=== PATIENT | male | born 1965 | race Caucasian/White ===

== ENCOUNTER 2018-03-24 22:45 | Emergency (ER) | payer OTHER ==
[~2018-03-24] VITALS: Ht 182.9 cm; Wt 95.5 kg
[2018-03-24 22:45] VITALS: TEMP 98.1
[~2018-03-24 22:45] MED LIST: FLEXERIL10 MG PO; LORTAB 5/500 501 TAB PO; NO HOME MEDICATIONS
[2018-03-24 23:12] LABS: BASO % 0.4 % (0.0-2.0); EOS # 0.2 (0.0-0.7); EOS % 2.3 % (0-4.0); GRAN # 3.9 (1.4-6.5); GRAN % 53.3 % (42.2-75.2); HEMOGLOBIN 12.7 g/dl (13.5-18.0); LYMPH # 2.5 (1.2-3.4); LYMPH % 34.5 % (20.0-51.0); MEAN CELL VOLUME 92 fl (80.0-100.0); MEAN CORPUSCULAR HEMOGLOBIN 32 pg (27.0-31.0); MEAN CORPUSCULAR HGB CONC 35 g/dl (33.0-37.0); MEAN PLATELET VOLUME 10.6 fl (7.4-10.4); MONO # 0.7 (0.1-0.6); MONO % 9.2 % (1.7-9.3); PLATELET COUNT 226 K/mm3 (130-400); RED BLOOD COUNT 3.95 M/mm3 (4.20-5.60); REDCELL DISTRIBUTION WIDTH-CV 12.7 % (11.5-14.5)
[2018-03-24 23:13] LABS: HEMATOCRIT 36.3 % (42.0-52.0)
[2018-03-24 23:21] LABS: ALBUMIN 4.3 gm/dL (3.5-5.0); BILIRUBIN,TOTAL 0.2 mg/dL (0.0-1.0); CALCIUM 9.6 mg/dL (8.4-10.2); CREATININE, serum 0.84 mg/dL (0.66-1.25); POTASSIUM 3.8 mmol/L (3.4-5.0); TOTAL PROTEIN 7.7 gm/dL (6.4-8.2)
[2018-03-25] MEDS ORDERED: CIPRO 500MG TA500 MG PO (01:48)
[2018-03-25] MEDS ORDERED: NORCO 325 MG-51 TAB PO (01:48)
[2018-03-25] MEDS ORDERED: FLEXERIL 1010 MG/TAB PO (01:48)
[2018-03-25 02:20] VITALS: BP 120/76; PULSE 69
== END 2018-03-25 02:20 | disposition home or self-care (01) ==
LOC: COL.ER 22:45
PROVIDERS: Emergency Medicine
DX: S01.81XA Laceration without foreign body of other part of head, initial encounter (principal); S80.02XA Contusion of left knee, initial encounter; S63.502A Unspecified sprain of left wrist, initial encounter; F10.129 Alcohol abuse with intoxication, unspecified; E78.5 Hyperlipidemia, unspecified; Z23 Encounter for immunization; Y90.7 Blood alcohol level of 200-239 mg/100 ml; W22.8XXA Striking against or struck by other objects, initial encounter; V93.83XA Other injury due to other accident on board other powered watercraft, initial encounter; Y92.828 Other wilderness area as the place of occurrence of the external cause
CPT/HCPCS: J2270; J2405; J7030; Q9967

== ENCOUNTER → 2018-04-01 | Emergency (ER) | payer OTHER ==
[~2018-04-01] MED LIST changes: +CIPRO 500MG TA500 MG PO; +FLEXERIL 1010 MG/TAB PO; +NORCO 325 MG-51 TAB PO
[2018-04-01 14:09] VITALS: BP 115/71; PULSE 76; TEMP 98.8
== END ==
LOC: COL.ER 14:06
DX: S01.111D Laceration without foreign body of right eyelid and periocular area, subsequent encounter (principal); Z79.891 Long term (current) use of opiate analgesic

== ENCOUNTER 2018-12-07 12:46 | Emergency (ER) | payer OTHER ==
[~2018-12-07] VITALS: Ht 182.9 cm; Wt 97.7 kg
[2018-12-07] MEDS ORDERED: CELEXA10 MG PO (13:06)
[2018-12-07] MEDS ORDERED: LIPITOR 10MG10 MG (13:07)
[2018-12-07 13:31] LABS: HEMATOCRIT 41.9 % (42.0-52.0); HEMOGLOBIN 14.5 g/dl (13.5-18.0); MEAN CELL VOLUME 92 fl (80.0-100.0); MEAN CORPUSCULAR HEMOGLOBIN 32 pg (27.0-31.0); MEAN CORPUSCULAR HGB CONC 35 g/dl (33.0-37.0); MEAN PLATELET VOLUME 10.7 fl (7.4-10.4); PLATELET COUNT 206 K/mm3 (130-400); RED BLOOD COUNT 4.54 M/mm3 (4.20-5.60); REDCELL DISTRIBUTION WIDTH-CV 13.2 % (11.5-14.5)
[2018-12-07 13:35] LABS: COLLECTION METHOD CLEAN CATCH
[2018-12-07 13:41] LABS: ALBUMIN 4.6 gm/dL (3.5-5.0); BILIRUBIN,TOTAL 1.1 mg/dL (0.0-1.0); C-REACTIVE PROTEIN 0.8 mg/dL (0.0-0.9); CALCIUM 10.3 mg/dL (8.4-10.2); CREATININE, serum 0.87 (0.66-1.25); POTASSIUM 4.2 mmol/L (3.4-5.0); TOTAL PROTEIN 8.4 gm/dL (6.4-8.2)
[2018-12-07 13:43] LABS: MUCOUS Present /lpf; PH 5 (5-8); SQUAMOUS EPITHELIAL None Seen /hpf; URINE APPEARANCE Clear; URINE BACTERIA None Seen /hpf; URINE BILIRUBIN Negative (NEGATIVE); URINE BLOOD Negative (NEGATIVE); URINE COLOR Yellow; URINE GLUCOSE Negative (NEGATIVE); URINE KETONE 1+ (NEGATIVE); URINE LEUKOCYTE ESTERASE Negative (NEGATIVE); URINE NITRATE Negative (NEGATIVE); URINE PROTEIN(semi-quant) Negative (NEGATIVE); URINE RBC 0-2 /hpf; URINE UROBILINOGEN Negative (NEGATIVE)
[2018-12-07 13:49] LABS: BAND 7 % (0-10); LYMPHOCYTE 2 % (20.0-51.0); NEUTROPHILS 91 % (42.0-75.2); PLATELET ESTIMATE NORMAL (NORMAL); TOXIC GRANULATION PRESENT
[2018-12-07 15:38] VITALS: BP 111/71; PULSE 80; TEMP 98.8
[2018-12-07] MEDS ORDERED: ZOFRAN ODT4 MG PO (15:49)
== END 2018-12-07 15:51 | disposition home or self-care (01) ==
LOC: COL.ER 12:46
PROVIDERS: Physician Assistant
DX: R11.10 Vomiting, unspecified (principal); R19.7 Diarrhea, unspecified; R10.31 Right lower quadrant pain; R10.11 Right upper quadrant pain; I10 Essential (primary) hypertension; F41.9 Anxiety disorder, unspecified; E78.5 Hyperlipidemia, unspecified
CPT/HCPCS: J1170; J1885; J2405; J7030; Q9967

== ENCOUNTER → 2022-03-14 | Outpatient (CLI) | payer OTHER ==
[~2022-03-14] MED LIST changes: +CELEXA10 MG PO; +LIPITOR 10MG10 MG; +ZOFRAN ODT4 MG PO
== END ==
LOC: COL.RAD 13:37
DX: R09.89 Other specified symptoms and signs involving the circulatory and respiratory systems (principal); R22.1 Localized swelling, mass and lump, neck

== ENCOUNTER 2023-12-11 12:58 | Day surgery (SDC) | payer BC ==
[~2023-12-11] VITALS: Ht 182.9 cm; Wt 94.9 kg
[~2023-12-11 12:58] MED LIST changes: +AMBIEN 10MG10 MG PO; +CELEXA 20MG20 MG/TAB PO; +COZAAR100 MG PO; +Famotidine 20 MG TAB PO SCH; +LIPITOR 10MG10 MG PO; +LR 1,000 ML IV SCH; +Meclizine 25 MG TAB PO SCH; +Metoclopramide 10 MG TAB PO SCH; +PROTONIX 40MG T40 MG PO; +Scopolamine 1 MG Delivered 3-Day PATCH TD SCH
[2023-12-11] MEDS ORDERED: Ketorolac 30 MG/ML VIAL ONE (13:41)
[2023-12-11] MEDS ORDERED: NS 10 ML IV ONE (13:41)
[2023-12-11] MEDS ORDERED: Lidocaine PF 2% (20 MG/ML) 5 ML VIAL ONE (13:41)
[2023-12-11] MEDS ORDERED: fentaNYL 50 MCG/ML 2 ML VIAL ONE (13:41)
[2023-12-11] MEDS ORDERED: Ondansetron 4 MG/2 ML VIAL ONE (13:41)
[2023-12-11] MEDS ORDERED: dexAMETHasone 10 MG/ML VIAL ONE (13:41)
[2023-12-11] MEDS ORDERED: ZYRTEC5 MG PO (13:42)
[2023-12-11] MEDS ORDERED: ZYRTEC 10MG10 MG PO (13:42)
[2023-12-11] MEDS ORDERED: Succinylcholine PF 200 MG/10 ML SYRINGE IV ONE (13:42)
[2023-12-11] MEDS ORDERED: hydrALAZINE 20 MG/ML 1 ML VIAL IV PRN (13:45)
[2023-12-11] MEDS ORDERED: fentaNYL 50 MCG/ML 1 ML SYRINGE/VIAL [PACU/SDC ONLY] IV PRN (13:45)
[2023-12-11] MEDS ORDERED: Ondansetron 4 MG/2 ML VIAL IV PRN (13:45)
[2023-12-11] MEDS ORDERED: HYDROmorphone 1 MG/1 ML SYRINGE [PACU/SDC ONLY] IV PRN (13:45)
[2023-12-11] MEDS ORDERED: droPERidol 2.5 MG/ML 2 ML VIAL IV PRN (13:45)
[2023-12-11 14:08] VITALS: BP 140/107; PULSE 80; TEMP 98.6
[2023-12-11] MEDS ORDERED: LR 1,000 ML IV SCH (14:30)
[2023-12-11] MEDS ORDERED: HYDROcodone/Acetaminophen 7.5-325 MG TAB PO PRN (14:30)
[2023-12-11] MEDS ORDERED: Lidocaine 1% w EPI (1:100,000) 20 ML Multi-Dose VIAL IJ ONE (15:24)
[2023-12-11] MEDS ORDERED: ePHEDrine 50 MG/ML VIAL ONE (15:39)
[2023-12-11] MEDS ORDERED: Labetalol 100 MG/20 ML Multi-Dose VIAL ONE (16:00)
[2023-12-11 17:10] VITALS: BP 140/82; PULSE 70; TEMP 97.6
[2023-12-11 17:15] VITALS: BP 142/87; PULSE 66
[2023-12-11 17:30] VITALS: BP 143/85; PULSE 66; TEMP 97
[2023-12-11 17:45] VITALS: BP 138/82; PULSE 64
[2023-12-11 18:00] VITALS: BP 131/82; PULSE 69
--- NOTE | 2023-12-11 18:45 | NUR ---
1656 Received report from BRAYDEN Clay, PACU. 1710 Patient returned to bay 4 from PACU, alert and oriented, breathing even and unalbored. Patient's surgical sites dry and intact. Reporting pain number of 3/10 (headache). 171 Patient given water and vanilla pudding for a PO challenge. Tolerated well. [address] Burt for discharge orders. Received verbal order's to discharge to home with instructions that prescriptions have been sent to [facility]. Instructed patient not to lift more than 20 pounds for 2 weeks and not to lift right arm above shoulder level for 1 month. Patient has already scheduled a 1 week follow-up appointment. Instruction package for [employer] device reviewed with patient by [employer] field service representative prior to going to OR. 180 Reviewed physician discharge instructions and patient educational materials with patient and his . Questions invited and answerred. 183 Patient to lobby via wheelchair for ride home with his in [facility].
== END 2023-12-11 18:30 | disposition home or self-care (01) ==
LOC: SDCO 12:58
DX: G47.33 Obstructive sleep apnea (adult) (pediatric) (principal); T41.5X5A Adverse effect of therapeutic gases, initial encounter; K21.9 Gastro-esophageal reflux disease without esophagitis; I10 Essential (primary) hypertension
CPT/HCPCS: C1767; C1778; C1883; J0360; J0690; J1100; J1170; J1885; J1920; J2405; J2704; J3010; J7120